=== PATIENT | female | born 1975 | race Caucasian/White ===

== ENCOUNTER 2016-07-19 16:36 | Emergency (ER) ==
[2016-07-19 16:48] VITALS: BP 124/80
--- NOTE | 2016-07-19 18:28 | PROVIDER DOCUMENTATION ---
HPI-Headache - General Chief Complaint: Headache Stated Complaint: HEADACHE Time Seen by Provider: 07/19/16 18:23 Source: patient Allergies/Adverse Reactions: Patient Allergies Allergy/AdvReac Type Severity Reaction Status Date / Time No Known Allergies Allergy Verified 07/19/16 16:48 Home Medications: Home Medication List Medication Instructions Recorded Confirmed Last Taken Type Citalopram [Celexa] 40 mg PO QHS 11/29/12 10/01/15 11/18/15 History Estradiol 2 mg PO DAILY 11/06/13 10/01/15 11/18/15 History Sumatriptan [Imitrex] 25 mg PO PRN PRN #12 tablet 05/30/14 10/01/15 Unknown Rx Eletriptan [Relpax] 40 mg PO PRN PRN 11/18/15 11/18/15 11/18/15 History Topiramate [Topamax] 100 mg PO DAILY 11/18/15 11/18/15 1 Day Ago History - History of Present Illness-Headache Nature of Presenting Problem: 41 y/o WF c hx of migraines, c/o the same. Its in the frontal region, radiating to the back of the head. Associated with nausea and photophobia. This is typical of her migraines, not the worst of her life. Just treated for sinus infection with Zpak, states this feels different. No changes in vision, blurry vision or focal neurological deficits. Normal gait. Takes Topomax daily at night for preventative medications. Currently having son getting water tanker driver's license; could be a cause of stress. Not the worst headache of her life. Review of Systems - Adult - REVIEW OF SYSTEMS - ADULT Constitutional: reports: no symptoms reported. denies: chills, fever, fatique Eyes: reports: see HPI, eye pain. denies: decreased vision, blurred vision, double vision Ears, Nose, Mouth & Throat: reports: no symptoms reported. denies: ear pain, nose pain, throat pain Cardiovascular: reports: no symptoms reported Respiratory: reports: no symptoms reported. denies: cough, shortness of breath Gastrointestinal: reports: see HPI, nausea. denies: abdominal pain, diarrhea, vomiting Genitourinary: reports: no symptoms reported. denies: dysuria Musculoskeletal: reports: no symptoms reported. denies: back pain, muscle aches Integumentary: reports: no symptoms reported. denies: rash Neurological: reports: see HPI, headache/migraines. denies: ataxia, dizziness/ vertigo, loss of balance Psychiatric: reports: no symptoms reported Endocrine: reports: no symptoms reported Hematologic/Lymphatic: reports: no symptoms reported Allergic/Immunologic: reports: no symptoms reported All Other Systems: Reviewed and Negative Past History - Adult - PAST MEDICAL HISTORY-ADULT Review of Records: reports: Old Records Reviewed, Nursing Assessment Review, Medications Reviewed Major Childhood Illnesses: reports: history unknown Cardiovascular: reports: denies history Respiratory: reports: denies history Gastrointestinal: reports: denies history Obstetrical/Gynecological: reports: denies history Genitourinary: reports: denies history Musculoskeletal: reports: denies history Neurological: reports: headaches/migraines Psychiatric: reports: depression Endocrine/Immune: reports: denies history Other Conditions: reports: denies history - PRIOR SURGERIES/PROCEDURES Surgical/Procedure History: reports: cholecystectomy, hysterectomy, - PRIOR HOSPITALIZATIONS Prior Hospitalizations: reports: none - IMMUNIZATION STATUS Childhood Immunizations: See Nurse Assessment Flu Vaccine: See Nurse Assessment - FAMILY HISTORY Family History: reviewed, not pertinent - SOCIAL HISTORY Smoking: denies Substance Use: none/never Alcohol Use Frequency: never Physical Exam- Neurological - Physical Exam-Neuro Initial Vital Signs Reviewed: Yes General Appearance: appears well, alert, no apparent distress Eye Exam: bilateral eye: normal inspection, PERRL, EOMI HENMT: normocephalic/atraumatic, moist mucous membranes, normal ENT inspection, TMs normal, pharynx normal. negative: pharyngeal erythema, tonsillar exudate, TM abnormal Head Injury: no evidence of injury Neck: non-tender, full range of motion, supple, normal inspection. negative: lymphadenopathy Respiratory: chest non-tender, lungs clear, normal breath sounds, no pleuratic chest pain, no respiratory distress, no accessory muscle use. negative: respiratory distress, decreased breath sounds, accessory muscle use, crackles, rales, rhonchi, wheezing Cardiovascular: normal peripheral pulses, regular rate, rhythm Extremity: normal gait color grinder Exam: normal hearing, normal speech, PERRL Coordination/Gait: normal gait Motor/Sensory: no motor deficit, no sensory deficit Neurologic: grossly normal, no motor/sensory deficits Integumentary: normal color, normal turgor, warm/dry Psych/Mental Status: normal mood/affect, normal thought content, normal thought process, oriented x 3 - Glascow Coma Scale Best Eye Response: (4) open spontaneously Best Verbal Response: (5) oriented Best Motor Response: (6) obeys commands Progress - PLAN OF CARE/RESULTS Progress/Plan/Lab Results: Vital Signs Temp Pulse Resp BP Pulse Ox 07/19/16 16:43 97.2 F L 83 16 124/80 99 No Known Allergies Allergy (Verified 07/19/16 16:48) Citalopram [Celexa] 40 mg PO QHS 11/29/12 Estradiol 2 mg PO DAILY 11/06/13 Sumatriptan [Imitrex] 25 mg PO PRN PRN #12 tablet 05/30/14 Eletriptan [Relpax] 40 mg PO PRN PRN 11/18/15 Topiramate [Topamax] 100 mg PO DAILY 11/18/15 Orders Category Date Time Status Ketorolac [Toradol] Med 07/19/16 18:31 Discontinued 30 mg IM NOW ONE Prochlorperazine [Compazine] Med 07/19/16 18:31 Discontinued 10 mg IM NOW ONE Promethazine [Phenergan] Med 07/19/16 18:31 Discontinued 25 mg IM NOW ONE Departure - Departure Time of Disposition Order: 18:32 DIAGNOSIS: Migraine Qualifiers: Migraine type: without aura Status migrainosus presence: without status migrainosus Intractability: not intractable Qualified Code(s): G43.009 - Migraine without aura, not intractable, without status migrainosus Disposition: HOME 01 Certified Medical Emergency: Emergent Condition: Stable Additional Instructions: Follow up with your primary care physician ED Follow Up Instructions: You have been treated by a care provider in the Emergency Department. These instructions are being provided to you so you can have an understanding of how to care for yourself upon discharge. Upon discharge from the Emergency Department, you are responsible for making arrangements for follow-up care by a physician of your choice. Take all prescribed medications as directed. Return to the Emergency Department immediately for any new or worsening symptoms. You may call the Physician Referral phone number at [phone] to obtain a list of Physicians who are taking new patients. Referrals: Mark Pitts [Primary Care Provider] - Attestation - Physician/ KATHY Attestation Patient care was provided by Advanced Practice Provider:: Yes Advanced Practice Provider:: Aaliyah Ruvalcaba Advanced Practice Provider documentation review:: The Mid-level provider documentation, treatment plan and medical decision making was reviewed by the physician who agrees with all treatment and medical decision making by the MLP.
[2016-07-19] MEDS ORDERED: PHENERGAN IM ONE (18:31)
[2016-07-19] MEDS ORDERED: TORADOL IM ONE (18:31)
[2016-07-19] MEDS ORDERED: COMPAZINE IM ONE (18:31)
== END 2016-07-19 19:03 | disposition home or self-care (01) ==
LOC: P.ED 16:36
DX: G43.009 Migraine without aura, not intractable, without status migrainosus (principal); R51 Headache; H57.10 Ocular pain, unspecified eye; R11.0 Nausea; F32.9 Major depressive disorder, single episode, unspecified; Z79.899 Other long term (current) drug therapy
CPT/HCPCS: 96372; J0780; J1885; J2550